=== PATIENT | female | born 1980 | race Caucasian/White ===

== ENCOUNTER 2019-11-17 19:20 | Emergency (ER) | payer MEDICAID, OTHER ==
[~2019-11-17] VITALS: Ht 172.7 cm; Wt 92.1 kg
[2019-11-17] MEDS ORDERED: ATEN25TA (19:48)
[2019-11-17] MEDS ORDERED: MAGN50TA (19:48)
[2019-11-17] MEDS ORDERED: WARF-23 (19:48)
[2019-11-17] MEDS ORDERED: DILT120C89 (19:48)
[2019-11-17] MEDS ORDERED: NEXI20TA (19:48)
[2019-11-17] MEDS ORDERED: FENO200C (19:48)
[2019-11-17] MEDS ORDERED: VITA50005 (19:48)
[2019-11-17] MEDS ORDERED: VITA500T9 (19:48)
[2019-11-17 19:59] LABS: BASO # 0.1 10^3/uL (0.0-0.2); BASO % 0.5 % (0.0-1.0); EOS # 0.3 10^3/uL (0.0-0.5); EOS % 2.7 % (0.0-3.0); HEMATOCRIT 33.5 % (36.0-47.0); HEMOGLOBIN 10.1 g/dl (12.0-15.5); LYMPH # 2.2 10^3/uL (1.5-5.0); LYMPH % 23.5 % (24.0-44.0); MEAN CORPUSCULAR HEMOGLOBIN 23.7 pg (27.0-33.0); MEAN CORPUSCULAR HGB CONC 30.1 g/dl (32.0-36.5); MEAN CORPUSCULAR VOLUME 78.5 fl (80.0-96.0); MONO # 0.7 10^3/uL (0.0-0.8); MONO % 6.9 % (0.0-5.0); NEUTROPHILS # 6.1 10^3/uL (1.5-8.5); NEUTROPHILS % 64.9 % (36.0-66.0); PLATELET COUNT, AUTOMATED 314 10^3/uL (150-450); RED BLOOD COUNT 4.27 10^6/uL (4.00-5.40); WHITE BLOOD COUNT 9.5 10^3/uL (4.0-10.0)
[2019-11-17] MEDS ORDERED: ASPIRIN 81 MG CHEW TABLET PO ONE (20:00)
[2019-11-17 20:18] LABS: INR 2.74; PROTHROMBIN TIME 28.9 SECONDS (11.8-14.0)
[2019-11-17 20:38] LABS: ALBUMIN 3.3 GM/DL (3.2-5.2); ALT/SGPT 21 U/L (12-78); BILIRUBIN,DIRECT 0.1 MG/DL (0.0-0.2); BILIRUBIN,TOTAL 0.3 MG/DL (0.2-1.0); BLOOD UREA NITROGEN 7 MG/DL (7-18); CALCIUM LEVEL 7.3 MG/DL (8.5-10.1); CARBON DIOXIDE LEVEL 23 MEQ/L (21-32); CHLORIDE LEVEL 109 MEQ/L (98-107); CK-MB VALUE MASS < 1.0 NG/ML (<3.6); CPK CREATINE PHOSPHOKINASE 74 U/L (26-192); CREATININE FOR GFR 0.95 MG/DL (0.55-1.30); GLOMERULAR FILTRATION RATE > 60.0 (>58); GLUCOSE, FASTING 86 MG/DL (70-100); MB/CK RELATIVE INDEX 1.35 (< OR =4); POTASSIUM SERUM 3.1 MEQ/L (3.5-5.1); SODIUM LEVEL 143 MEQ/L (136-145); TOTAL PROTEIN 6.7 GM/DL (6.4-8.2); TROPONIN I < 0.02 NG/ML (< 0.10)
[2019-11-17] MEDS ORDERED: POTASSIUM CHLORIDE 10 MEQ SR TABLET PO ONE (21:00)
[2019-11-17] MEDS ORDERED: POTA20TA6 PO (21:11)
[2019-11-17 21:50] VITALS: BP 108/56
--- NOTE | 2019-11-18 10:08 | REP ---
REASON: Chest pain. COMPARISON: 08/19/2008, the latest prior. The technique utilized in obtaining the radiograph has magnified the cardiac silhouette and accentuated the interstitial markings. There is cardiomegaly, which is mild, but accentuated by technique. There is a dual-chamber bipolar pacemaker device, status quo. Note is again made of previous median sternotomy and aortic valvular replacement. The lung artis are stable and clear. There is no change in the osseous structures. IMPRESSION: No acute cardiopulmonary disease. Findings as described above. Electronically Signed by Chris Hitchcock DO 11/18/2019 10:32 A
--- NOTE | 2019-11-20 06:58 | ECGEPIP ---
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
== END 2019-11-17 21:55 | disposition home or self-care (01) ==
LOC: M ED 19:20
DX: R07.89 Other chest pain (principal); E87.6 Hypokalemia; E78.5 Hyperlipidemia, unspecified; I11.9 Hypertensive heart disease without heart failure; Z95.0 Presence of cardiac pacemaker; F17.210 Nicotine dependence, cigarettes, uncomplicated; Z88.0 Allergy status to penicillin; Z88.2 Allergy status to sulfonamides; Z88.6 Allergy status to analgesic agent; Z91.041 Radiographic dye allergy status; Z79.01 Long term (current) use of anticoagulants; Z79.899 Other long term (current) drug therapy

== ENCOUNTER 2020-01-29 09:55 | Emergency (ER) | payer MEDICAID, OTHER ==
[~2020-01-29] VITALS: Ht 172.7 cm; Wt 89.1 kg
[~2020-01-29 09:55] MED LIST: ATEN25TA; DILT120C89; FENO200C; MAGN50TA; NEXI20TA; POTA20TA6 PO; VITA50005; VITA500T9; WARF-23
[2020-01-29] MEDS ORDERED: ONDA4TAB6 (10:03)
[2020-01-29] MEDS ORDERED: TIZA4TAB4 (10:03)
[2020-01-29 11:35] LABS: BASO # 0.1 10^3/uL (0.0-0.2); BASO % 0.6 % (0.0-1.0); EOS # 0.3 10^3/uL (0.0-0.5); EOS % 2.1 % (0.0-3.0); HEMATOCRIT 36.9 % (36.0-47.0); HEMOGLOBIN 11.3 g/dl (12.0-15.5); LYMPH # 2.3 10^3/uL (1.5-5.0); LYMPH % 16.8 % (24.0-44.0); MEAN CORPUSCULAR HEMOGLOBIN 24.4 pg (27.0-33.0); MEAN CORPUSCULAR HGB CONC 30.6 g/dl (32.0-36.5); MEAN CORPUSCULAR VOLUME 79.7 fl (80.0-96.0); MONO # 0.9 10^3/uL (0.0-0.8); MONO % 6.5 % (0.0-5.0); NEUTROPHILS # 9.8 10^3/uL (1.5-8.5); NEUTROPHILS % 72.2 % (36.0-66.0); PLATELET COUNT, AUTOMATED 410 10^3/uL (150-450); RED BLOOD COUNT 4.63 10^6/uL (4.00-5.40); WHITE BLOOD COUNT 13.6 10^3/uL (4.0-10.0)
[2020-01-29 12:07] LABS: ALBUMIN 3.7 GM/DL (3.2-5.2); ALT/SGPT 22 U/L (12-78); BILIRUBIN,DIRECT 0.1 MG/DL (0.0-0.2); BILIRUBIN,TOTAL 0.4 MG/DL (0.2-1.0); BLOOD UREA NITROGEN 9 MG/DL (7-18); CALCIUM LEVEL 8.1 MG/DL (8.5-10.1); CARBON DIOXIDE LEVEL 25 MEQ/L (21-32); CHLORIDE LEVEL 109 MEQ/L (98-107); CREATININE FOR GFR 0.96 MG/DL (0.55-1.30); GLOMERULAR FILTRATION RATE > 60.0 (>58); GLUCOSE, FASTING 80 MG/DL (70-100); LIPASE 78 U/L (73-393); POTASSIUM SERUM 3.1 MEQ/L (3.5-5.1); SODIUM LEVEL 142 MEQ/L (136-145); TOTAL PROTEIN 7.5 GM/DL (6.4-8.2)
--- NOTE | 2020-01-29 13:07 | REPVR ---
PROCEDURE INFORMATION: Exam: CT Abdomen And Pelvis Without Contrast Exam date and time: 01/29/2020 12:14 PM Age: 39 years old Clinical indication: Abdominal pain; Additional info: Abdominal pain, HX of Crohn disease, elevated WBC. History of cholecystectomy, appendectomy, and bowel resection. TECHNIQUE: Imaging protocol: Computed tomography of the abdomen and pelvis without contrast. Coronal and sagittal reformats were created and reviewed. Radiation optimization: All CT scans at this facility use at least one of these dose optimization techniques: automated exposure control; mA and/or kV adjustment per patient size (includes targeted exams where dose is matched to clinical indication); or iterative reconstruction. COMPARISON: No relevant prior studies available. FINDINGS: Lungs: The visualized lung bases are unremarkable. Heart: A cardiac conduction assist device lead is incompletely imaged within the right atrium and right ventricle. Liver: Diffuse hypoattenuation of the liver consistent with fatty infiltration. Right liver craniocaudal span = 22.6 cm. Gallbladder and bile ducts: The gallbladder is absent. No intrahepatic or extrahepatic bile duct dilation. Pancreas: Pancreas is unremarkable. Spleen: No splenomegaly. Splenule noted. Adrenals: Adrenal glands are unremarkable. Kidneys and ureters: Nonspecific bilateral perinephric fat stranding. Bilateral kidney subcentimeter hypoattenuating lesions, compatible with a simple appearing cysts. No hydronephrosis. No nephrolithiasis. No ureteral calculus or abnormal dilation. Stomach and bowel: The stomach is decompressed; this limits evaluation of its wall thickness. The patient appears status post partial colectomy of the ascending colon with a primary enterocolonic anastomosis present at the abdominal right upper quadrant. There is diffuse concentric wall thickening of the terminal ileum with associated prominence of its mesenteric vasculature. Diffuse fatty infiltration of the colonic and rectal wall consistent with sequelae of chronic inflammatory bowel disease. No evidence of bowel obstruction. Appendix: The appendix is not identified. Intraperitoneal space: No free intraperitoneal fluid. No pneumoperitoneum. Vasculature: Atherosclerosis. No abdominal aortic aneurysm. Lymph nodes: Mildly enlarged ileocolic mesenteric lymph nodes. Urinary bladder: Urinary bladder is unremarkable. Reproductive: Left ovarian 2.6 cm homogeneous hypoattenuating ovoid simple appearing cyst; no further imaging is recommended. (Reference: Quiroz) Bones/joints: Multilevel degenerative spine disease. L4-L5 posterior disc protrusion creates mild central canal stenosis. Soft tissues: A large midline ventral abdominal wall supraumbilical hernia is present. The hernia neck measures 15.2 x 15.9 cm. The hernia contains multiple loops of small bowel as well as a portion of the transverse colon. IMPRESSION: 1. Findings consistent with acute enteritis involving the terminal ileum, compatible with Crohn disease. 2. Nonspecific bilateral perinephric fat stranding is of unknown clinical significance. Clinical correlation is needed to exclude urinary tract infection. 3. Hepatomegaly. Findings consistent with hepatic steatosis. 4. Large ventral abdominal wall supraumbilical hernia containing small bowel and colon. 5. Please see the body of the report for other findings as described. REFERENCES: Richie et al. Management of Incidental Adnexal Findings on CT and MRI: A White Paper of the ACR Incidental Findings Committee, J Am Litzy Radiol. 2019;17(2):248-254. Electronically signed by: Feliz Velasquez On 01/29/2020 13:07:39 PM
[2020-01-29] MEDS ORDERED: NORC1TAB7 PO (13:23)
[2020-01-29] MEDS ORDERED: PRED20TA PO ×2 (13:23→14:04)
[2020-01-29] MEDS ORDERED: POTASSIUM CHLORIDE 10 MEQ SR TABLET PO ONE (13:45)
[2020-01-29 13:52] VITALS: BP 106/66
--- NOTE | 2020-01-30 18:22 | ED PDOC ---
Post-Departure Follow-Up dr eddy faxed formal report of ct abd/p for fu Topher Vora MD Jan 30, 2020 18:22
== END 2020-01-29 14:08 | disposition home or self-care (01) ==
LOC: M ED 09:55
DX: R10.9 Unspecified abdominal pain (principal); R16.0 Hepatomegaly, not elsewhere classified; K43.6 Other and unspecified ventral hernia with obstruction, without gangrene; I51.9 Heart disease, unspecified; K21.9 Gastro-esophageal reflux disease without esophagitis; M19.90 Unspecified osteoarthritis, unspecified site; Z87.19 Personal history of other diseases of the digestive system; Z95.0 Presence of cardiac pacemaker; Z95.2 Presence of prosthetic heart valve; F17.200 Nicotine dependence, unspecified, uncomplicated; Z79.01 Long term (current) use of anticoagulants; Z79.899 Other long term (current) drug therapy; Z91.041 Radiographic dye allergy status; Z88.0 Allergy status to penicillin; Z88.2 Allergy status to sulfonamides; Z88.5 Allergy status to narcotic agent; Z91.89 Other specified personal risk factors, not elsewhere classified